=== PATIENT | female | born 1985 | race African-American/Black ===

== ENCOUNTER 2019-09-19 20:24 | Outpatient (CLI) | payer MEDICAID ==
[~2019-09-19] VITALS: Ht 154.9 cm; Wt 63.0 kg
[2019-09-19 20:40] LABS: MICROSCOPIC INDICATED
[2019-09-19 20:43] VITALS: BP 99/52
[2019-09-19 20:52] LABS: AMPHETAMINE SCREEN, URINE Negative (Negative); BARBITURATE SCREEN, URINE Negative (Negative); BENZODIAZEPINE SCREEN, URINE Negative (Negative); CANNABINOID SCREEN, URINE Negative (Negative); COCAINE SCREEN, URINE Negative (Negative); METHADONE SCREEN, URINE Negative (Negative); OPIATE SCREEN, URINE Negative (Negative)
== END 2019-09-19 22:12 | disposition home or self-care (01) ==
LOC: LDOP 20:24
PROVIDERS: ATTEND Obstetrics & Gynecology
DX: O09.522 Supervision of elderly multigravida, second trimester (principal); R10.9 Unspecified abdominal pain; Z3A.22 22 weeks gestation of pregnancy
CPT/HCPCS: 80307; 81001; 87086; 89060; 99201; G0463; Q0114